=== PATIENT | female | born 2000 | race Two or more races ===

== ENCOUNTER 2022-03-28 23:26 | Emergency (ER) | payer OTHER, BC | END 2022-03-29 00:45 | disposition home or self-care (01) | LOC: CSHERS 23:26 | DX: S92.322A Displaced fracture of second metatarsal bone, left foot, initial encounter for closed fracture (principal); F17.290 Nicotine dependence, other tobacco product, uncomplicated; W01.0XXA Fall on same level from slipping, tripping and stumbling without subsequent striking against object, initial encounter ==